=== PATIENT | female | born 1935 | race Caucasian/White ===

== ENCOUNTER 2023-02-03 11:03 | Outpatient (AMB) | payer MEDICARE, SELFPAY ==
--- NOTE | 2023-02-03 11:13 | A.OFFVIS_ITS ---
Intake Vital Signs 02/03/23 11:18 Height 4 ft 11 in Weight 131 lb 4 oz BMI 26.5 BP 118/72 Blood Pressure Location Lt brachial Position Sitting Pulse 59 Pulse Source Pulse Oximeter Pulse Oximetry (%) 96 Oxygen Delivery Method Room Air Intake Visit Reasons: [id number] [employer] Hand Required: No Allergies amoxicillin Allergy (Uncoded 02/03/23 11:14) diarrea Medication List - Last Reconciled 02/03/23 by Demetri Sahu CNP allopurinol 300 mg PO DAILY amlodipine 5 mg PO DAILY apixaban (Eliquis) 2.5 mg PO BID aspirin 81 mg PO DAILY metoprolol tartrate 25 mg PO BID simvastatin 10 mg PO BEDTIME spironolactone 25 mg PO BID HPI HPI Comments History of Present Illness Details 87 y/o female patient presents with her daughter for new in-person visit for s/p multiple TIA. Pt reports she had multiple TIA this year about 6 times almost every month. Her symptoms started with right face cooling feeling with right upper and lower extremities' numbness and tingling. Pt went to [facility] after the third TIA. CTA shows chronic microvascular ischemia. She was diagnosed with Afib 1.5 year ago. She is on metoprolol, aspirin and Eliquis. Pt reports no residual left. She is active, drive and independent all daily activities. Pt reports she feels tired all the time. She does not sleep well at night, not sure she snores or not. Sleep questionnaire: Have you ever been diagnosed with a sleep disorder? No. Have you ever had a sleep study in the past? No. Have you ever been treated for a sleep disorder? No. Do you take medications for a sleep disorder? No. Do you snore? Don't know. Do you wake up gasping at night? No. Do you have episodes of apneas? No. If yes, are they witnessed? No. Do you have episodes of nocturnal chest pain or dyspnea? No. Do you have difficulty initiating sleep? No. Do you have difficulty maintaining sleep? No. Do you wake up tired? No. Do you have headaches upon awakening? No. Do you wake up with dry mouth or throat? No. Do you have GERD? No. Do you have nocturia? Yes. Do you have nocturnal leg cramps? Rarely. Do you have symptoms of restless legs? No. Do you act out your dreams? No. Sleep hygiene questionnaire: What is your usual sleep routine? Usual bedtime is at 8:30-9 pm; Usual wake up time is at 7 am. Do you take naps? May fall asleep. Is your sleep environment cool, dark, and quiet? Yes. Do you exercise? Yes, twice a week, at [facility]. Do you take caffeine or other stimulants? Coffee in the morning. Do you use electronics in bed? Yes. What is your work schedule? N/A. Hypersomnolence questionnaire: Do you have daytime tiredness or fatigue? Yes. Do you easily fall asleep when inactive? Yes. Have you ever had episodes of sudden weakness? No. Have you ever had episodes of sudden weakness associated with strong emotions? No. PFSH Surgical History (Updated 02/03/23 @ 11:17 by Mary Bonilla CMA) H/O shoulder surgery Family History (Updated 02/03/23 @ 11:18 by Mary Bonilla CMA) Family/Other Cancer Father Heart disease Social History (Updated 02/03/23 @ 11:18 by Mary Bonilla CMA) Alcohol intake: never Patient Tobacco Use Status: Never used Tobacco Review of Systems Const All systems reviewed & are unremarkable except as noted in HPI and below ENT Reports Normal hearing present Neuro Reports Normal hearing present Physical Exam Vital Signs: Last Vital Signs Pulse 59 02/03/23 11:18 BP 118/72 02/03/23 11:18 Pulse Ox 96 02/03/23 11:18 Oxygen Delivery Method Room Air 02/03/23 11:18 BMI result Body Mass Index 26.5 Const General: cooperative Nutritional Appearance: overweight Orientation/consciousness: patient oriented x3 Neck Neck: Yes full ROM and Yes supple Resp Effort & Inspection: normal respiratory effort and able to speak in complete sentences Neuro General: patient oriented x3 and gait normal Cranial nerves: Yes Bilaterally intact EOM present, Yes Normal facial strength present, Yes Midline tongue present, Yes Symmetric palate elevation present, Yes Normal hearing present, Yes Ability to bilaterally rotate head present and Yes Ability to bilaterally elevate shoulders present Cognition (Neuro): normal cognition Motor exam (neuro): 5/5 motor strength present throughout, Pronator motor function not present and no tremor noted Psych Appearance: grossly normal Mental Status: mental status grossly normal Speech and movement: Normal speech and movement present Affect: normal affect Attitude: cooperative Assessment & Plan Assessment & Plan (1) TIA (transient ischemic attack): Comment: Pt had multiple TIA. Code(s): G45.9 - Transient cerebral ischemic attack, unspecified (2) Daytime sleepiness: Code(s): R40.0 - Somnolence (3) Sleeping difficulties: Code(s): G47.9 - Sleep disorder, unspecified Plan Pt is advised to undergo home sleep study to r/o sleep apnea. Will f/u with pt after study to discuss results and appropriate treatment options. Pt to call with any worsening concerns or questions. Continue to take simvastatin, eliquis, aspirin and her BP medications Orders: Orders RT home sleep study 02/03/23 G45.9 - Transient cerebral ischemic attack, unspecified, I48.91 - Unspecified atrial fibrillation, R40.0 - Somnolence Coding Level of Care Code New Pt Level 4 (09486) Diagnoses TIA (transient ischemic attack) G45.9 Daytime sleepiness R40.0 Sleeping difficulties G47.9
[2023-02-03 11:18] VITALS: BP 118/72; PULSE 59; O2SAT 96; BMI 26.5
== END 2023-02-03 11:57 | disposition home or self-care (01) ==
PROVIDERS: PCP Physician Assistant Medical; Visit Provider Nurse Practitioner Family
DX: G45.9 Transient cerebral ischemic attack, unspecified (principal); R40.0 Somnolence; G47.9 Sleep disorder, unspecified
CPT/HCPCS: 99204

== ENCOUNTER → 2023-02-03 11:03 | Outpatient (BNVA) | payer MEDICARE, SELFPAY | PROVIDERS: PCP Physician Assistant Medical; Visit Provider Nurse Practitioner Family | DX: G45.9 Transient cerebral ischemic attack, unspecified (principal); R40.0 Somnolence; G47.9 Sleep disorder, unspecified | CPT/HCPCS: 99202 ==